=== PATIENT | female | born 1985 | race Caucasian/White ===

== ENCOUNTER 2024-09-22 11:06 | Emergency (ER) | payer BC, SELFPAY ==
[2024-09-22 11:18] VITALS: BP 133/77
[2024-09-22 11:45] LABS: Urine Albumin Negative (Neg - Trace); Urine Bilirubin Negative (Negative); Urine Character Clear (Clear); Urine Color Yellow; Urine Glucose Negative (Negative); Urine Ketone Negative (Negative); Urine Leukocyte Negative (Negative); Urine Nitrite Negative (Negative); Urine Occult Blood Negative (Negative); Urine Urobilinogen Negative (Neg - 1+)
[2024-09-22 11:46] LABS: % Basophils 0.4 % (0-2); % Eosinophils 0.2 % (0-6); % Immature Granulocytes 0.2 % (0-0.5); % Lymphocytes 12.2 % (20.5-51.1); % Monocytes 6.7 % (1.7-9.3); % Neutrophils 80.3 % (42.2-75.2); Absolute Lymphocytes 1.1 10^3/uL (1.2-3.4); Absolute Monocytes 0.6 10^3/uL (0.1-0.6); Absolute Neutrophils 7.4 10^3/uL (1.4-6.5); Hematocrit 38.1 % (37.0-47.0); Mean Corp Hgb Conc. 34.1 g/dL (33.0-37.0); Mean Corpuscular Hgb 30.3 pg (27.0-31.0); Mean Corpuscular Volume 88.8 fL (81.0-99.0); Mean Platelet Volume 11.3 fL (7.4-10.4); Nucleated Red Blood Cells % 0 %; Platelet Count 210 10^3/uL (130-400); Red Blood Cell Count 4.29 10^6/uL (4.20-5.40); Red Cell Dist. Width 12.4 % (11.5-14.5); White Blood Cell Count 9.2 10^3/uL (4.8-10.8)
[2024-09-22 11:59] LABS: HCG, Serum Qualitative Screen Negative
[2024-09-22 12:02] LABS: ALT (SGPT) 19 U/L (0-35); AST (SGOT) 17 U/L (14-36); Albumin 4.3 g/dl (3.5-5.0); Alkaline Phosphatase 40 U/L (38-126); Blood Urea Nitrogen 20 mg/dl (7-17); Calcium 9.6 mg/dl (8.4-10.2); Carbon Dioxide 27 mmol/L (22-30); Chloride 105 mmol/L (98-107); Glucose 103 mg/dl (70-99); Lipase 71 U/L (23-300); Potassium 4.2 mmol/L (3.5-5.1); Sodium 141 mmol/L (135-145); Total Bilirubin 1.1 mg/dl (0.2-1.3); Total Protein 6.9 g/dl (6.3-8.2); eGFR > 60.00
[2024-09-22] MEDS: NSS 1000 IV (12:46)
[2024-09-22] MEDS: ZOFRAN 4 MG IV (12:47)
[2024-09-22] MEDS: OMNIPAQUE 50 ML PO (12:47)
[2024-09-22] MEDS: TORADOL 15 MG IV (12:47)
[2024-09-22 14:13] VITALS: BP 131/78
--- NOTE | 2024-09-22 16:02 | ED.GENMED ---
History of Present Illness
General
Chief Complaint: Abdominal Pain
Time Seen by Provider: 09/22/24 12:26
History of Present Illness
History of Present Illness:
24 hours of vague abdominal discomfort. More lower abdomen. Feels like diverticulitis to the patient
Past History
Past History
ED Past Medical History: Other (Diverticulitis) and Other (Valve prolapse with regurgitation)
ED Past Surgical History: and Other (Tympanostomy tubes)
Social History
Tobacco: Non-smoker
Alcohol: Occasional
Drug: None
Personal:
Living: with family
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
Family History
Family History: Negative Diabetes, Hypertension or CAD
Review of Systems
Review of Systems
All Other Systems: Not applicable
Constitutional: Denies fever
ABD/GI: Denies diarrhea
Phy Exam
Physical Exam
Physical Exam:
GENERAL: Alert and oriented in no apparent distress
EYE: Orbits normal.
NECK: Supple
CARDIAC: Regular rate and rhythm without any obvious murmurs.
LUNGS: Clear breath sounds,normal
ABDOMEN: Soft, mild tenderness nonlocalizing periumbilical and lower quadrants. No rebound or guarding no mass or hernia
NEUROLOGICAL: Alert and oriented , grossly non-focal
SKIN: Warm and dry, no rash or lesion, no discoloration, skin intact.
MUSCULOSKELETAL: No edema,no deformity.Good color
PSYCH: Normal and appropriate interaction.
Course
Orders/Labs/Results
Orders:
Orders
09/22/24 11:08
ECG [Electrocardiogram (*1)] Urgent
Reason for Study: Abdominal Pain
EKG- Treatment ONCE
09/22/24 11:23
Test Result ONCE
09/22/24 11:31
Complete Blood Count/With Diff Urgent
Comprehensive Metabolic Panel Urgent
HCG, Serum Qualitative Screen Urgent
Lipase Urgent
09/22/24 11:37
Urinalysis Reflex To Culture Urgent
Date Specimen was Collected: 09/22/24
Time Specimen was Collected: 11:23
09/22/24 12:36
CT Abd/pel W Iv And Oral Contr Urgent
Comment:
Reason For Exam: Abdominal pain. Mostly left lower quadrant
IV Insert/Care/Rem.- Treatment PRN
0.9% Sodium Chloride 1000 ml [Nss] 1,000 ml IV BOLUS
Iohexol [Omnipaque] See Protocol PO NOW STA
Ondansetron Injectable [Zofran] 4 mg IV NOW STA
09/22/24 12:37
Ketorolac [Toradol] 15 mg IV NOW STA
09/22/24 16:02
MetroNIDAZOLE [Flagyl] 500 mg PO NOW STA
09/22/24 16:02
Ciprofloxacin HCl [Cipro] 500 mg PO NOW STA
Abnormal Lab Results
09/22/24
11:31
MPV 11.3 H fL
(7.4-10.4)
Absolute Neuts (auto) 7.4 H 10^3/uL
(1.4-6.5)
Absolute Lymphs (auto) 1.1 L 10^3/uL
(1.2-3.4)
Neutrophils % 80.3 H %
(42.2-75.2)
Lymphocytes % 12.2 L %
(20.5-51.1)
BUN 20 H mg/dl
(7-17)
Glucose 103 H mg/dl
(70-99)
09/22/24 11:31
09/22/24 11:31
Vital Signs
Initial and Last Documented VS:
Initial Vital Signs
Temp Pulse Resp BP Pulse Ox
98.4 F 90 16 133/77 98
09/22/24 11:18 09/22/24 11:18 09/22/24 11:18 09/22/24 11:18 09/22/24 11:18
Last Documented Vital Signs
Temp Pulse Resp BP Pulse Ox
98.4 F 86 16 131/78 98
09/22/24 11:18 09/22/24 14:13 09/22/24 14:13 09/22/24 14:13 09/22/24 14:13
MDM/Problems Addressed
Differential Diagnosis Includes:
Most suspicious of diverticulitis. Workup in progress. Differential would include appendicitis colitis nonspecific abdominal pain. Doubt COUNCILMAN etiology
*Radiology
Radiology exam reviewed: radiology read reviewed (Diverticulitis. No perforation or free abscess. Small amount of free fluid)
*Pulse Oximetry
Patient hypoxic: no
*Critical Care Note
Total Time (30-74mins, 75-104mins- exclusive of procedures): Not Applicable
Data Reviewed
Review of Other/Old Records Reveals: Labs, Records and Testing
Update Note
Update Note:
Patient nontoxic and stable. Reasonable labs. Nonsurgical abdomen. Diverticulitis by CT. Discussed options of treatment. Cipro Flagyl and follow-up
ED Attending Note
-
Portions of this chart may have been created with voice recognition software.� Occasional wrong word or��sound alike� substitutions may have occurred due to the inherent limitations of voice recognition software.
Discharge Plan
Departure
Patient Disposition: Home (Routine Discharge)
Date of Disposition: 09/22/24
Time of Disposition: 16:03
Patient with high blood pressure during this ER visit?: Yes
Discharge Problem:
Diverticulitis
Instructions: Diverticulitis (DC), BLOOD PRESSURE
Prescriptions:
New
ciprofloxacin HCl 500 mg tablet
500 mg PO BID Qty: 20 0RF
metronidazole 500 mg tablet
500 mg PO TID Qty: 30 0RF
No Action
prenat.vits,carlos,tku-xqsz-yeyqo [ Formula] 1 TAB tablet
1 tab PO DAILY
oxycodone-acetaminophen 5 MG/325 MG tablet
1 tab PO Q4HPRN PRN (Reason: moderate pain) Qty: 12 0RF
ursodiol 300 MG capsule
300 mg PO BID Qty: 60 0RF
ibuprofen 600 MG tablet
600 mg PO Q4HPRN PRN (Reason: cramps) Qty: 90 0RF
Referrals:
Samaria Lovett CRNP [Family Provider] - Follow up in 2-3 days
Activity Restrictions/Additional Instructions:
Light diet the next 2 to 3 days
Return with increased pain fever vomiting or if symptoms or not significantly improving in the next 2 to 3 days
The prescriptions were sent to your pharmacy
Interventions
Interventions:
*Risk Screen - Suicide Last Done: 09/22/24 11:18
*General Assessment Last Done: 09/22/24 11:58
*Neglect/Abuse Screening Last Done: 09/22/24 11:18
*ED- Fall Risk Assessment Last Done: 09/22/24 11:58
*ED COVID-19 Vaccine History Last Done: 09/22/24 11:58
SJ-Vqwkgr-Vhzkxuorec Assessment Last Done: 09/22/24 11:58
Discharge Date and Time
Print Language: [place]OU[place]
[2024-09-22] MEDS: FLAGYL 500 MG PO (16:21)
[2024-09-22] MEDS: CIPRO 500 MG PO (16:21)
== END 2024-09-22 16:28 | disposition home or self-care (01) ==
LOC: EMR 11:06
PROVIDERS: Emergency Medicine; EMERGENCY PHYSICIAN Emergency Medicine; FAMILY PHYSICIAN Nurse Practitioner Adult Health
DX: K57.32 Diverticulitis of large intestine without perforation or abscess without bleeding (principal); I34.1 Nonrheumatic mitral (valve) prolapse
CPT/HCPCS: 99284; 96374; 96375; 96361; 74177; 80053; 81003; 83690; 84703; 85025; 93005; Q9967

== ENCOUNTER 2024-09-27 12:03 | Emergency (ER) | payer BC, SELFPAY ==
[2024-09-27 12:11] VITALS: BP 115/75
[2024-09-27] MEDS: BENADRYL 25 MG PO (12:18)
--- NOTE | 2024-09-27 12:40 | ED.GENMED ---
History of Present Illness
General
Chief Complaint: Allergic Reaction
Time Seen by Provider: 09/27/24 12:28
History of Present Illness
History of Present Illness:
Patient presents to the emergency department with concern for allergic reaction. She developed a rash today after taking Cipro/Flagyl. She has been on this for 5-1/2 days for diverticulitis. Her abdominal pain has resolved. She denies any fevers
or chills. Denies any lip or tongue swelling or shortness of breath.
Past History
Past History
ED Past Medical History: Other (Diverticulitis) and Other (Valve prolapse with regurgitation)
ED Past Surgical History: and Other (Tympanostomy tubes)
Social History
Tobacco: Non-smoker
Alcohol: Occasional
Drug: None
Personal:
Living: with family
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
Family History
Family History: Negative Diabetes, Hypertension or CAD
Phy Exam
Physical Exam
Physical Exam:
GENERAL APPEARANCE: NAD, well developed/ well nourished
EYES lids/conjunctiva normal
EARS/NOSE/THROAT Mucous membranes moist, uvula midline without oral pharyngeal erythema, exudate or swelling. No tongue or lip swelling.
HEAD/NECK normocephalic atraumatic, neck is supple.
RESPIRATORY respiratory effort normal, speaks in full sentences, no accessory muscle use. Lungs clear to auscultation without rhonchi, wheezes, rales
CARDIAC Regular rate and rhythm, no edema.
ABDOMINAL Soft, ND/NT. No pulsatile masses on exam, rebound tenderness, Betancourt sign or pain over Mcburney's point.
MUSCLES/EXTREMITIES No abnormal range of motion, no swelling.
SKIN Warm, pink and dry. Urticarial rash to chest and upper back. Face is red.
NEUROLOGICAL Speech is clear and appropriate. Normal level of consciousness. 5/5 strength in all extremities.
PSYCH Normal mood and affect. Judgement/competence is appropriate
Course
Orders/Labs/Results
Orders:
Orders
09/27/24 12:17
Diphenhydramine [Benadryl] 25 mg .ROUTE .STK-MED ONE
09/27/24 12:18
Diphenhydramine [Benadryl] 25 mg PO NOW STA
09/27/24 12:39
Dexamethasone Sod Phosphate [Decadron] 10 mg IM NOW STA
Vital Signs
Initial and Last Documented VS:
Initial Vital Signs
Temp Pulse Resp BP Pulse Ox
98.4 F 75 18 115/75 98
09/27/24 12:11 09/27/24 12:11 09/27/24 12:11 09/27/24 12:11 09/27/24 12:11
Last Documented Vital Signs
Temp Pulse Resp BP Pulse Ox
98.4 F 75 18 115/75 98
09/27/24 12:11 09/27/24 12:11 09/27/24 12:11 09/27/24 12:11 09/27/24 12:11
*Critical Care Note
Total Time (30-74mins, 75-104mins- exclusive of procedures): Not Applicable
ED Attending Note
ED Attending Note
ED Attending Note:
Patient with likely allergic reaction to either fluoroquinolone or Flagyl. In terms of her diverticulitis management, I feel that as her symptoms have resolved and she has no abdominal tenderness after 5-1/2 days of antibiotics, she can discontinue
these. I instructed her not to take the rest of the Cipro or Flagyl and to follow-up with an gun mechanic for formal testing. She has no signs of anaphylaxis at this time. Given Benadryl and Decadron. Return precautions given.
-
Portions of this chart may have been created with voice recognition software.� Occasional wrong word or��sound alike� substitutions may have occurred due to the inherent limitations of voice recognition software.
Discharge Plan
Departure
Patient Disposition: Home (Routine Discharge)
Date of Disposition: 09/27/24
Time of Disposition: 12:51
Patient with high blood pressure during this ER visit?: No
Discharge Problem:
Allergic reaction caused by a drug
Instructions: Hives (DC), Adverse Drug Reactions, Adult (DC)
Prescriptions:
No Action
prenat.vits,carlos,gss-rykf-vicqv [ Formula] 1 TAB tablet
1 tab PO DAILY
oxycodone-acetaminophen 5 MG/325 MG tablet
1 tab PO Q4HPRN PRN (Reason: moderate pain) Qty: 12 0RF
ursodiol 300 MG capsule
300 mg PO BID Qty: 60 0RF
ibuprofen 600 MG tablet
600 mg PO Q4HPRN PRN (Reason: cramps) Qty: 90 0RF
ciprofloxacin HCl 500 mg tablet
500 mg PO BID Qty: 20 0RF
metronidazole 500 mg tablet
500 mg PO TID Qty: 30 0RF
Referrals:
Samra Diaz MD [Active] -
Activity Restrictions/Additional Instructions:
follow up with the gun mechanic for outpatient workup
return to ER with lip or mouth swelling or difficulty breathing
Interventions
Interventions:
*Risk Screen - Suicide Last Done: 09/27/24 12:11
*General Assessment Last Done: 09/27/24 12:11
*Neglect/Abuse Screening Last Done: 09/27/24 12:11
*ED- Fall Risk Assessment Last Done: 09/27/24 12:11
*ED COVID-19 Vaccine History Last Done: 09/27/24 12:11
*Nursing Disposition Last Done: 09/27/24 12:56
ED- Cardiac Assessment Last Done: 09/27/24 12:34
ED- Pulmonary Assessment Last Done: 09/27/24 12:34
ED-Skin Assessment Last Done: 09/27/24 12:34
Discharge Date and Time
Discharge Date/Time: 09/27/24 13:01
Print Language: [place]
[2024-09-27] MEDS: DECADRON 10 MG IM (12:42)
== END 2024-09-27 13:01 | disposition home or self-care (01) ==
LOC: EMR 12:03
PROVIDERS: EMERGENCY PHYSICIAN Emergency Medicine; FAMILY PHYSICIAN Nurse Practitioner Adult Health
DX: R21 Rash and other nonspecific skin eruption (principal); T50.905A Adverse effect of unspecified drugs, medicaments and biological substances, initial encounter; Y92.9 Unspecified place or not applicable
CPT/HCPCS: 99282; 96372

== ENCOUNTER → 2024-12-20 10:24 | Outpatient (REF) | payer BC, SELFPAY | LOC: WDC 10:24 | PROVIDERS: ATTENDING PHYSICIAN Obstetrics & Gynecology | DX: R92.8 Other abnormal and inconclusive findings on diagnostic imaging of breast (principal) | CPT/HCPCS: 77061; 77065 ==

== ENCOUNTER 2024-12-27 06:29 | Day surgery (SDC) | payer BC, SELFPAY ==
[2024-12-19 09:00] LABS: Hematocrit 37.2 % (37.0-47.0); Hemoglobin 12.4 g/dL (12.0-16.0); Mean Corp Hgb Conc. 33.3 g/dL (33.0-37.0); Mean Corpuscular Volume 90.5 fL (81.0-99.0); Nucleated Red Blood Cells % 0 %; Platelet Count 197 10^3/uL (130-400); Red Cell Dist. Width 12.4 % (11.5-14.5)
[2024-12-19 09:58] LABS: Blood Urea Nitrogen 25 mg/dl (7-17); Calcium 8.9 mg/dl (8.4-10.2); Carbon Dioxide 25 mmol/L (22-30); Chloride 109 mmol/L (98-107); Glucose 96 mg/dl (70-99); Potassium 4.3 mmol/L (3.5-5.1); Sodium 140 mmol/L (135-145); eGFR > 60.00
[2024-12-19 10:12] LABS: Beta HCG Quantitative < 2.39 mIU/ml
[2024-12-19 14:15] VITALS: BMI 25.2
[2024-12-27] VITALS (9 sets, daily range): BP systolic 110–134; BP diastolic 60–72; BMI 25.2
[2024-12-27] MEDS: NORMOSOL-R/PLASMALYTE-A 1000 IV (10:34)
--- NOTE | 2024-12-27 13:05 | W.SUR.PREOP ---
Pre-Operative Surgical Note
-
I have examined this patient prior to the performance of the scheduled procedure.
The patient's condition is unchanged from the time of the current History and
Physical and the patient is able to undergo the scheduled procedure.
[2024-12-27] MEDS: DILAUDID 0.25 MG IV ×2 (14:58→15:14)
== END 2024-12-27 17:45 | disposition home or self-care (01) ==
LOC: SDS 06:29
PROVIDERS: ATTENDING PHYSICIAN Obstetrics & Gynecology; FAMILY PHYSICIAN Family Medicine
DX: N70.11 Chronic salpingitis (principal); N83.8 Other noninflammatory disorders of ovary, fallopian tube and broad ligament; N97.9 Female infertility, unspecified
CPT/HCPCS: 58661; 36415; 80048; 84702; 85025; 86850; 86900; 86901; 88305; C1776

== ENCOUNTER 2025-02-22 08:57 | Emergency (ER) | payer BC, SELFPAY ==
[2025-02-22 09:05] VITALS: BP 126/72
[2025-02-22 09:35] VITALS: BMI 25.3
[2025-02-22 09:58] LABS: Urine Character Clear (Clear)
[2025-02-22 10:00] VITALS: BP 115/61
[2025-02-22 10:07] LABS: Urine Red Blood Cell 0-2 /HPF (0-2)
[2025-02-22 10:08] LABS: Urine White Cell 30-40 /HPF (0-5)
[2025-02-22 10:27] LABS: Hematocrit 36.5 % (37.0-47.0); Hemoglobin 12.4 g/dL (12.0-16.0); Mean Corp Hgb Conc. 34.0 g/dL (33.0-37.0); Mean Corpuscular Volume 88.4 fL (81.0-99.0); Nucleated Red Blood Cells % 0 %; Platelet Count 183 10^3/uL (130-400); Red Cell Dist. Width 12.4 % (11.5-14.5)
[2025-02-22 10:37] LABS: HCG, Serum Qualitative Screen Negative
[2025-02-22 10:43] LABS: ALT (SGPT) 19 U/L (0-35); AST (SGOT) 16 U/L (14-36); Albumin 4.4 g/dl (3.5-5.0); Alkaline Phosphatase 32 U/L (38-126); Blood Urea Nitrogen 20 mg/dl (7-17); Calcium 9.3 mg/dl (8.4-10.2); Carbon Dioxide 24 mmol/L (22-30); Chloride 109 mmol/L (98-107); Estimated Creatinine Clearance 94 ml/min; Glucose 97 mg/dl (70-99); Lipase 70 U/L (23-300); Potassium 4.8 mmol/L (3.5-5.1); Sodium 138 mmol/L (135-145); Total Protein 6.9 g/dl (6.3-8.2); eGFR > 60.00
--- NOTE | 2025-02-22 10:46 | ED.GENMED ---
History of Present Illness
General
Chief Complaint: Flank Pain
Source: patient
Time Seen by Provider: 02/22/25 09:22
History of Present Illness
History of Present Illness:
39-year-old female with past medical history of diverticulitis and previous hydrosalpinx status post salpingectomy in December of this year presenting to the emergency department for evaluation of right-sided flank pain that she noticed earlier this
morning, initially a 6 out of 10, now a 1 out of 10 following a dose of Motrin, patient notes being treated for urinary tract infection last week with 1 dose of Macrobid but had an allergic reaction of hives after taking 1 dose, discontinued this
and was prescribed a dose of fosfomycin which patient seemed to make most of her symptoms better. Patient now endorsing return of the urinary frequency/urgency and then today the flank pain. There are no fevers, chills, rigors, nausea or vomiting.
Patient is currently undergoing the initial process of IVF and is due for her procedure next week.
Past History
Past History
ED Past Medical History: Other (Diverticulitis) and Other (Valve prolapse with regurgitation)
ED Past Surgical History: , Gynecological and Other (Tympanostomy tubes)
Social History
Tobacco: Non-smoker
Alcohol: Occasional
Drug: None
Personal:
Living: with family
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
Family History
Family History: Negative Diabetes, Hypertension or CAD
Review of Systems
Review of Systems
All Other Systems: ROS reviewed and negative except as documented in HPI and ROS
Phy Exam
Physical Exam
Physical Exam:
GENERAL: Alert , in no apparent distress
EYE: clear conjunctiva b/l
HEAD: NCAT
ENT: mmm.
CARDIAC: Regular rate and rhythm .
LUNGS: Clear breath sounds bilaterally, no acute respiratory distress, no wheezes/rales/rhonchi
ABDOMEN: Soft, without focal tenderness, no r/g, no cvat
NEUROLOGICAL: Alert and oriented
SKIN: Warm and dry, skin intact.
MUSCULOSKELETAL: well perfused.
PSYCH: Normal and appropriate interaction.
Scores
Heart Failure Risk
Heart Failure Risk Score: Not Applicable
Heart Score for Chest Pain Patients
STEMI patient?: Not applicable
Withdrawal Assessment of Alcohol
Withdrawal Assessment Completed?: Not applicable
Course
Orders/Labs/Results
Orders:
Orders
02/22/25 09:41
UA Reflex to Culture [Urinalysis Reflex To Culture] Stat
Date Specimen was Collected: 02/22/25
Time Specimen was Collected: 09:40
Urine Microscopic Reflex Cult Stat
Urine Culture Stat
SANDEEP Source: U
Specimen Description:
Date Specimen was Collected: 02/22/25
Time Specimen was Collected: 09:40
02/22/25 10:07
Test Result ONCE
02/22/25 10:08
CT Abd/pelvis W Iv Cont Urgent
Comment:
Reason For Exam: right flank pain
02/22/25 10:17
Complete Blood Count/With Diff Urgent
Comprehensive Metabolic Panel Urgent
HCG, Serum Qualitative Screen Urgent
Lipase Urgent
02/22/25 12:23
Cefdinir [Omnicef] 300 mg PO NOW STA
Abnormal Lab Results
02/22/25 02/22/25
09:41 10:17
RBC 4.13 L 10^6/uL
(4.20-5.40)
Hct 36.5 L %
(37.0-47.0)
MPV 11.0 H fL
(7.4-10.4)
Absolute Lymphs (auto) 1.1 L 10^3/uL
(1.2-3.4)
Lymphocytes % 16.9 L %
(20.5-51.1)
Chloride 109 H mmol/L
(98-107)
BUN 20 H mg/dl
(7-17)
Alkaline Phosphatase 32 L U/L
(38-126)
Ur Occult Blood Reflex 2+ A
(Negative)
Leukocyte Esterase Rfl 3+ A
(Negative)
Urine WBC (Reflex) 30-40 A /HPF
(0-5)
Urine Bacteria (Reflex) Moderate A
(Negative)
Urine Albumin (Reflex) 2+ A
(Neg - Trace)
02/22/25 10:17
02/22/25 10:17
Vital Signs
Initial and Last Documented VS:
Initial Vital Signs
Temp Pulse Resp BP Pulse Ox
98.5 F 73 18 126/72 98
02/22/25 09:05 02/22/25 09:05 02/22/25 09:05 02/22/25 09:05 02/22/25 09:05
Last Documented Vital Signs
Temp Pulse Resp BP Pulse Ox
98.5 F 67 16 104/56 97
02/22/25 12:45 02/22/25 12:45 02/22/25 12:45 02/22/25 12:45 02/22/25 12:45
MDM/Problems Addressed
Differential Diagnosis Includes:
Cystitis
Pyelonephritis
Renal/Ureteral Colic
Infected kidney stone
Post operative abscess/hematoma
Retroperitoneal hematoma
MDM/Problems Addressed:
39-year-old female presenting to the emergency department for evaluation of right sided flank pain. Recent treatment for a urinary tract infection, culture grew staph saprophyticus. Will check labs, urine, CT imaging. Patient declining anything
for pain. Disposition pending.
*Radiology
Radiology exam reviewed: radiology read reviewed
*Pulse Oximetry
SaO2: 100
Oxygen Mode of Delivery: Room air
Patient hypoxic: no
*Critical Care Note
Total Time (30-74mins, 75-104mins- exclusive of procedures): Not Applicable
Data Reviewed
Review of Other/Old Records Reveals: Labs and Records
Source: patient
Patient Management
Escalation/DeEscalation of care consider admission/obs:
Patient CT scan shows suspicion for cystitis but no evidence for pyelonephritis or kidney stone. Given patient's UA findings will treat with a course of Omnicef. Urine culture being sent. We gave patient a dose of this medication here and
observed given her multiple allergies. Patient without any adverse reactions and felt comfortable being discharged home. She will follow-up with her primary care provider as well as with her fertility team as planned next week
ED Attending Note
-
Portions of this chart may have been created with voice recognition software.� Occasional wrong word or��sound alike� substitutions may have occurred due to the inherent limitations of voice recognition software.
Discharge Plan
Departure
Patient Disposition: Home (Routine Discharge)
Date of Disposition: 02/22/25
Time of Disposition: 13:17
Patient with high blood pressure during this ER visit?: No
Discharge Problem:
Cystitis
Instructions: Urinary tract infection (DC)
Prescriptions:
New
cefdinir 300 mg capsule
300 mg PO BID Qty: 13 0RF
phenazopyridine [Pyridium] 200 mg tablet
200 mg PO TID Qty: 6 0RF
No Action
tretinoin 0.05 % Cream
1 applic TOPICAL HS
Betamethasone Cream
1 dose topical DAILY PRN (Reason: eczema)
CoQ-10
1 cap PO DAILY
Fish Oil
1 cap PO DAILY
Vitamin
1 tab PO DAILY
Vitamin D
1 cap PO DAILY
ibuprofen 600 MG tablet
600 mg PO Q6H PRN (Reason: pain)
oxycodone 5 mg tablet
5 mg PO Q6H PRN (Reason: severe pain) Qty: 8 0RF
Rx Instructions:
Half TAB PO Q6hr prn moderate pain or 1 TAB PO Q6hr prn severe pain
Referrals:
Samaria Lovett CRNP [Family Provider, General]
Interventions
Interventions:
*Risk Screen - Suicide Last Done: 02/22/25 09:05
*General Assessment Last Done: 02/22/25 09:05
*Neglect/Abuse Screening Last Done: 02/22/25 09:05
*ED- Fall Risk Assessment Last Done: 02/22/25 09:05
*ED COVID-19 Vaccine History Last Done: 02/22/25 09:05
*Nursing Disposition Last Done: 02/22/25 13:25
BN-Ltwssk-Jkqrjgmrze Assessment Last Done: 02/22/25 09:37
ED-Female Genitourinary Assessment Last Done: 02/22/25 09:37
Discharge Date and Time
Discharge Date/Time: 02/22/25 13:26
Print Language: [place]
[2025-02-22 12:00] VITALS: BP 107/53
[2025-02-22] MEDS: OMNICEF 300 MG PO (12:29)
[2025-02-22 12:45] VITALS: BP 104/56
== END 2025-02-22 13:26 | disposition home or self-care (01) ==
LOC: EMR 08:57
PROVIDERS: Physician Assistant Medical; EMERGENCY PHYSICIAN Emergency Medicine; FAMILY PHYSICIAN Nurse Practitioner Adult Health
DX: N30.90 Cystitis, unspecified without hematuria (principal); Z90.79 Acquired absence of other genital organ(s)
CPT/HCPCS: 99284; 74177; 80053; 81003; 81015; 83690; 84703; 85025; 87086; 87147; Q9967

== ENCOUNTER → 2025-05-30 10:53 | Outpatient (REF) | payer BC, SELFPAY | LOC: WDC 10:53 | PROVIDERS: ATTENDING PHYSICIAN Obstetrics & Gynecology | DX: R92.333 Mammographic heterogeneous density, bilateral breasts (principal) | CPT/HCPCS: 76641 ==